=== PATIENT | male | born 1995 | race Caucasian/White ===

== ENCOUNTER 2020-02-14 21:01 | Emergency (ER) | payer SELFPAY ==
[~2020-02-14] VITALS: Ht 170.2 cm; Wt 52.2 kg
--- NOTE | 2020-02-14 21:48 | Emergency Department Note ---
History of Present Illnes History of Present Illness Chief Complaint: Laceration History of Present Illness This is a 24 year old male Chief Complaint Comment 24 y/o male pt aaox3 present s to ED with approx 2 cm laceration to left protestant when attempting to separate dogs fighting at pts residence; edges well approximated, no active bleeding noted; pt is utd on vaccinations; denies any medical or surgical hx Historian: Patient, Family Member Arrival Mode: Car Pattern Room Attendant Required: No Onset (how long ago): hour(s) (2) Location: L protestant Quality: Sharp Radiation: Reports non-radiation Severity: mild Onset quality: sudden Duration (how long): hour(s) (2) Timing of current episode: constant Progression: unchanged Chronicity: new Context: Denies recent illness, Denies recent surgery Relieving factors: none Exacerbating factors: none Associated symptoms: Reports denies other symptoms Treatments prior to arrival: none Past Medical/Family History Physician Review I have reviewed the patient's past medical and family history. Any updates have been documented here. Past Medical History Recent Fever: No Clinical Suspicion of Infectio: No New/Unexplained Change in Ment: No Past Medical History: None Past Surgical History: None Review of Systems Review of Systems Constitutional: Reports no symptoms EENTM: Reports no symptoms Cardiovascular: Reports no symptoms Respiratory: Reports no symptoms Gastrointestinal: Reports no symptoms Genitourinary: Reports no symptoms Musculoskeletal: Reports no symptoms Integumentary: Reports as per HPI Neurological: Reports no symptoms Psychological: Reports no symptoms Endocrine: Reports no symptoms Hematological/Lymphatic: Reports no symptoms Physical Exam Related Data Allergies: Coded Allergies: No Known Allergies (Unverified , 02/14/20) Triage Vital Signs Vital Signs Date Time Temp Pulse Resp B/P (MAP) Pulse Ox O2 Delivery O2 Flow Rate FiO2 02/14/20 21:31 98.2 82 18 127/74 100 Room Air Vital signs reviewed: Yes Physical Exam CONSTITUTIONAL Constitutional: Present well-developed, Present well-nourished HENT HENT: Present normocephalic, Present atraumatic, Present oropharynx clear/moist, Present nose normal HENT L/R: Present left ext ear normal, Present right ext ear normal EYES Eyes: Reports PERRL, Reports conjunctivae normal NECK Neck: Present ROM normal PULMONARY Pulmonary: Present effort normal, Present breath sounds normal CARDIOVASCULAR Cardiovascular: Present regular rhythm, Present heart sounds normal, Present capillary refill normal, Present normal rate GASTROINTESTINAL Abdominal: Present soft, Present nontender, Present bowel sounds normal GENITOURINARY Genitourinary: Present exam deferred SKIN Skin: Present warm, Present dry, Present other (Horizontal laceration to L protestant) MUSCULOSKELETAL Musculoskeletal: Present ROM normal NEUROLOGICAL Neurological: Present alert, Present oriented x 3, Present no gross motor or sensory deficits PSYCHOLOGICAL Psychological: Present mood/affect normal, Present judgement normal Procedures Laceration Site: scalp Side: left Size (cm): 2 Description: clean Depth: simple, single layer Pre-repair: wound exposed, irrigated extensively Skin layer closed with: other (Enedina) Number of sutures: 3 Assessment & Plan Medical Decision Making MDM 24 yo M presents for dog bite to L protestant. Wound is clean, edges approximate well. No bleeding currently. Skull X-ray show sno FB. UTD on tetanus. Dog is UTD on vaccines and is family dog. Wound repaired with 3 enedina. He will return to ED in 7 days for staple removal. Reassessment Reassessment time: 21:47 Reassessment Well appearing, NAD Assessment & Plan Final Impression: (1) Laceration Depart Disposition: HOME, SELF-CARE Last Vital Signs Date Time Temp Pulse Resp B/P (MAP) Pulse Ox O2 Delivery O2 Flow Rate FiO2 02/14/20 21:31 98.2 82 18 127/74 100 Room Air WES BETTENCOURT MD Feb 14, 2020 21:48
--- NOTE | 2020-02-14 22:23 | Diagnostic Imaging Report ---
SKULL SERIES < FOUR VIEWS - 4 views HISTORY: Pain COMPARISON: None available. IMPRESSION: No acute fracture. No radiographic foreign bodies. Well aerated maxillary sinuses and mastoid air cells. Signed by: Dr. Hebert Kilgore MD on 02/14/2020 10:19 PM
--- OUTSIDE RECORDS SUMMARY | 2020-02-15 19:51 | XMS REPORT | Continuity of Care Document ---
Author Author [facility] t Organization [facility] Address 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 Allergies, Adverse Reactions, Alerts This patient has no known allergies or adverse reactions. Medications This patient has no known medications. Procedures This patient has no known procedures. Encounters Start Date/Time End Date/Time Encounter Type Admission Type [facility] Care Department Encounter ID Source 2018-12-30 22:47:39 2018-12-31 00:10:00 Emergency Michele Hall [facility] ([facility] [id number] Results Test Description Test Time Test Comments Results Result Comments Source SKULL SERIES < FOUR VIEWS 2020-02-14 22:18:00 [facility] 1995 Sex: M [facility] [place] [address] Patient Name: ALEX JOHNSON MR #: [id number] : 1995 Age/Sex: 24/M Req #: [id number] [facility] Physician: Ordered by: Wes Malone MD Report #: [id number] Location: ER Room/Bed: Procedure: [id number] DX/SKULL SERIES < FOUR VIEWS Exam Date: 02/14/20 Exam Time: 2156 REPORT STATUS: Signed SKULL SERIES < FOUR VIEWS - 4 views HISTORY: Pain COMPARISON: None available. IMPRESSION: No acute fracture. No radiographic foreign bodies. Well aerated maxillary sinuses and mastoid air cells. Signed by: Dr. Hebert Ortiz MD on 02/14/2020 10:19 PM Dictated By: HEBERT ORTIZ MD 18 Transcribed By: ANDRA on 02/14/202218 COPY TO: WES MALONE MD
== END 2020-02-14 22:25 | disposition home or self-care (01) ==
LOC: ER 21:35
DX: S01.01XA Laceration without foreign body of scalp, initial encounter (principal); W54.0XXA Bitten by dog, initial encounter; Y92.008 Other place in unspecified non-institutional (private) residence as the place of occurrence of the external cause
CPT/HCPCS: 70250; 99283